=== PATIENT | female | born 1930 | race Caucasian/White ===

== ENCOUNTER 2016-12-29 22:22 | Emergency (ER) | payer MEDICARE ==
[2016-12-29 23:10] LABS: ABSOLUTE NEUTROPHIL COUNT 14.2 K/mm3 (1.8-7.7); BASO % 0.2 % (0.2-1.0); EOS % 0.1 % (0.9-2.9); HEMATOCRIT 36.6 % (37.0-47.0); HEMOGLOBIN 11.1 gm/l (12.0-16.0); IMM NEUT # 0.1 K/mm3 (0-0.2); IMM NEUT% 0.5 % (0-1); LYMPH # 0.6 (1.0-4.8); LYMPH % 4.1 % (15-45); MEAN CELL VOLUME 97.1 fl (81.0-99.0); MEAN CORPUSCULAR HEMOGLOBIN 29.4 pg (27.0-31.0); MEAN CORPUSCULAR HGB CONC 30.3 g/dl (33.0-37.0); MONO # 0.3 (0.0-0.8); MONO % 2.1 % (4-12); PLATELET COUNT 304 K/mm3 (130-400); RED CELL DISTRIBUTION WIDTH 14.9 % (11.5-14.5)
[2016-12-29 23:24] LABS: MAGNESIUM 2.1 mg/dL (1.9-2.7)
[2016-12-29 23:45] LABS: BAND 2 % (0-10); BASOPHIL 0 % (0-1); EOSINOPHIL 0 % (1-3); LYMPHOCYTE 9 % (15-45); MONOCYTE 1 % (4-12); NEUTROPHILS 88 % (43-75); PLATELET ESTIMATE NORMAL (NORMAL); TOTAL CELLS COUNTED 100
[2016-12-30 00:44] LABS: SPECIFIC GRAVITY 1.015 (1.001-1.030); URINE BILIRUBIN NEGATIVE (NEGATIVE); URINE BLOOD 2+ (NEGATIVE); URINE GLUCOSE (UA) TRACE (NEGATIVE); URINE LEUKOCYTE ESTERASE NEGATIVE (NEGATIVE); URINE NITRITE NEGATIVE (NEGATIVE); URINE PROTEIN 2+ (NEGATIVE); URINE UROBILINOGEN NORMAL (0-1 mg/dl)
[2016-12-30 00:45] LABS: URINE APPEARANCE CLEAR; URINE COLOR LIGHT YELLOW
[2016-12-30 00:53] LABS: URINE BACTERIA 0; URINE EPITHELIAL CELLS RARE /hpf
[2016-12-30] MEDS ORDERED: ASPIRIN (UNCOATED) 325 MG TABLET ONE (02:25)
[2016-12-30] MEDS ORDERED: CEFTRIAXONE 1 GRAM DUPLEX 50 ML IV ONE (02:25)
--- NOTE | 2016-12-30 08:08 | CT ---
EXAMINATION: Noncontrast cranial CT. CLINICAL INDICATION: Weakness. Inability to walk. TECHNIQUE: A noncontrast cranial CT scan was obtained. Axial images were acquired from just above the vertex through the skull base. 4 mm stacked axial, coronal, and sagittal reconstructions were reviewed. COMPARISONS: None FINDINGS: The CSF containing spaces are prominent throughout. There is diminished attenuation within the periventricular white matter tracts bilaterally. Small bilateral lacunar changes are noted. No acute intercranial hemorrhage, mass or mass effect is identified. No extra-axial fluid collections are detected. The visualized segments of the posterior fossa are unremarkable. The cerebellar pontine angle cisterns are symmetric. The osseous structures are intact. The paranasal sinuses are clear. The visualized portions of the orbits are unremarkable. The mastoid sinuses are normal and symmetric. IMPRESSION: Global diffuse atrophy with microvascular ischemic changes. No acute intracranial abnormalities are identified.
--- NOTE | 2016-12-30 08:17 | RAD ---
CHEST-AP BEDSIDE HISTORY: Weakness. COMPARISONS: 12/31/2013. FINDINGS: A single AP upright view of the chest was performed demonstrating an indwelling dual-lead pacing device in stable position. The heart size is within expected for technique. Subtle linear densities are seen within the periphery of the right hemithorax may reflect atelectasis or scarring, less conspicuous than its appearance on prior exam. No effusion or pneumothorax is visualized. The hilar and mediastinal structures are intact. IMPRESSION: 1. Peripheral interstitial prominence within the right hemithorax suggesting atelectasis or scarring, less conspicuous than its appearance on prior exam of 12/31/2013. 2. A stable appearance of the dual-lead pacing device.
== END 2016-12-30 07:03 | disposition home or self-care (01) ==
LOC: ED 22:22
DX: R53.1 Weakness (principal); I12.9 Hypertensive chronic kidney disease with stage 1 through stage 4 chronic kidney disease, or unspecified chronic kidney disease; E11.22 Type 2 diabetes mellitus with diabetic chronic kidney disease; N18.9 Chronic kidney disease, unspecified; J44.9 Chronic obstructive pulmonary disease, unspecified; Z86.718 Personal history of other venous thrombosis and embolism; Z87.891 Personal history of nicotine dependence; Z79.84 Long term (current) use of oral hypoglycemic drugs; Z79.82 Long term (current) use of aspirin
CPT/HCPCS: 83880; 85025; 80053; 83735; 84484; 81001; 71010; 70450; 99284; 51702; 96361 ×3; 96365; 99283; A9270; J0696

== ENCOUNTER 2016-12-31 10:09 | Observation (INO) | payer MEDICARE ==
[2016-12-31 10:44] LABS: URINE BILIRUBIN NEGATIVE (NEGATIVE); URINE BLOOD 2+ (NEGATIVE); URINE GLUCOSE (UA) NEGATIVE (NEGATIVE); URINE LEUKOCYTE ESTERASE NEGATIVE (NEGATIVE); URINE NITRITE NEGATIVE (NEGATIVE); URINE PROTEIN 2+ (NEGATIVE); URINE UROBILINOGEN NORMAL (0-1 mg/dl)
[2016-12-31 10:45] LABS: ABSOLUTE NEUTROPHIL COUNT 12.3 K/mm3 (1.8-7.7); BASO % 0.2 % (0.2-1.0); EOS % 0.2 % (0.9-2.9); HEMATOCRIT 36.8 % (37.0-47.0); HEMOGLOBIN 11.1 gm/l (12.0-16.0); IMM NEUT # 0.1 K/mm3 (0-0.2); IMM NEUT% 0.5 % (0-1); LYMPH # 0.8 (1.0-4.8); MEAN CELL VOLUME 98.4 fl (81.0-99.0); MEAN CORPUSCULAR HEMOGLOBIN 29.7 pg (27.0-31.0); MEAN CORPUSCULAR HGB CONC 30.2 g/dl (33.0-37.0); MEAN PLATELET VOLUME 10.2 fl (7.4-10.4); MONO # 0.5 (0.0-0.8); MONO % 3.5 % (4-12); NEUT % 89.6 % (43-75); PLATELET COUNT 330 K/mm3 (130-400); RED CELL DISTRIBUTION WIDTH 14.9 % (11.5-14.5)
[2016-12-31 10:48] LABS: URINE APPEARANCE CLEAR; URINE COLOR YELLOW
[2016-12-31 11:00] LABS: ALBUMIN 3.8 gm/dL (3.5-5.7); CALCIUM 9.9 mg/dL (8.6-10.3)
[2016-12-31 11:02] LABS: URINE BACTERIA RARE; URINE EPITHELIAL CELLS 0-1 /hpf; URINE RBC 0-1 /hpf; URINE WBC 0-1 /hpf
[2016-12-31 14:33] VITALS: BMI 33.8
[2016-12-31] MEDS ORDERED: BISACODYL 5 MG TABLET.EC PO PRN (17:39)
[2016-12-31] MEDS ORDERED: ACETAMINOPHEN 325 MG TABLET PO PRN (17:39)
[2016-12-31] MEDS ORDERED: MAGNESIUM HYDROXIDE 30 ML UDCUP PO PRN (17:39)
[2016-12-31] MEDS ORDERED: BLISTEX LIPSTICK 1 EACH TP PRN (17:39)
[2016-12-31] MEDS ORDERED: MENTHOL/CETYLPYRD 1 EACH LOZENGE PO PRN (17:39)
[2016-12-31] MEDS ORDERED: CALCIUM CARBONATE 500 MG TAB.CHEW PO PRN (17:39)
[2016-12-31] MEDS ORDERED: SODIUM CHLORIDE 0.9% 100 ML IV PRN (17:39)
[2016-12-31] MEDS ORDERED: BISACODYL 10 MG SUP PR PRN (17:39)
[2016-12-31] MEDS ORDERED: INSULIN ASPART (DOSE) 100 UNITS/1 ML SUB-Q PRN (17:45)
[2016-12-31] MEDS: FUROSEMIDE 20 MG TABLET PO SCH (18:25)
[2016-12-31] MEDS: ASPIRIN (UNCOATED) 325 MG TABLET PO SCH (18:25)
[2016-12-31] MEDS: ENOXAPARIN SODIUM 30 MG/0.3 ML SYRINGE SUB-Q SCH (18:25)
[2016-12-31] MEDS: PANTOPRAZOLE 40 MG TABLET DR PO SCH (18:27)
[2016-12-31 19:01] LABS: MAGNESIUM 1.9 mg/dL (1.9-2.7)
--- NOTE | 2016-12-31 19:52 | US ---
DUPLEX SCAN CAROTID BILATERAL Indications: Left-sided numbness. TIA. Comparisons: None Technique: The carotid arteries were interrogated with real-time bennett-scale ultrasound, color Doppler, and spectral Doppler. Carotid Duplex Criteria: Measurement of carotid stenosis is based on velocity parameters that correlate the residual internal carotid diameter with [place] Symptomatic Carotid Endarterectomy Trial (NASCET)-based stenosis levels. Doppler Right Carotid CCA prox PSV 67.8 cm/s EDV 7.4 CCA dist PSV 57.1 EDV 9.3 Bulb PSV 46.6 EDV 5.8 ICA prox PSV 51.3 EDV 7.4 ICA dist PSV 93.4 EDV 21.5 ECA PSV 99 Vertebral PSV 49.5 ICA/CCA PSV 1.6 Vertebral Flow antegrade Subclavian triphasic Left Carotid CCA prox PSV 75 cm/s EDV 8.3 CCA dist PSV 61.5 EDV 9 Bulb PSV 64.7 EDV 10.9 ICA prox PSV 61.2 EDV 7 ICA dist PSV 155 EDV 23 ECA PSV 167 Vertebral PSV 47.3 ICA/CCA PSV 2.5 Vertebral Flow antegrade Subclavian triphasic Bennett-scale: There is atherosclerotic plaque within the left carotid bifurcation. There is no suspicious spectral broadening. Impression: 1. 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 Antegrade flow within the vertebral arteries.
--- NOTE | 2016-12-31 20:07 | HP ---
[facility] [id number] DATE OF ADMISSION: December 31, 2016 CHIEF COMPLAINT: Left sided weakness. HISTORY OF PRESENT ILLNESS: The patient is an 86-year-old female who lives alone who has had a couple of episodes of weakness. She does recall having a fall about two weeks ago without significant injury but associated with some weakness and then approximately two or three days ago, she recalls having left leg weakness and numbness up to her waist that lasted about 30 minutes. She was seen in the emergency room and evaluated and discharged, but then she had a recurrence of symptoms today again with left leg numbness and weakness. She had trouble getting up but once standing could get to walking. She noted that her left arm was a little bit numb, slightly weak, but is now better. She does not recall any facial symptoms but did have speech difficulties with a hard time forming her words when she talked to 911. She describes some dysarthria rather than aphasia. She has no prior history of cerebrovascular disease known. She was given some food and has now had general resolution of her symptoms. PAST MEDICAL HISTORY: 1. 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 Baseline creatinine is around 3.5. She has not had dialysis and does not wish to have dialysis. 2. She has a history of anemia associated with chronic kidney disease and receives Aranesp on a monthly basis. 3. History of severe chronic obstructive pulmonary disease, is on 3 liters chronically. 4. History of coronary artery disease but is not aware of any history of myocardial infarction. 5. She has a possible history of congestive heart failure listed in the chart but does not have any echocardiogram that she can recall. 6. She has had diabetes for 10 to 15 years. 7. She has gastroesophageal reflux disease. 8. She takes allopurinol to prevent gout. 9. She has hypertension with goal systolic blood pressure between 130 and 160. 10. History of dyslipidemia on lovastatin. 11. Hypothyroidism. 12. At one part in the chart it says atrial fibrillation but she has not been on Coumadin or other anticoagulation, only aspirin. 13. Previous colonoscopy had shown diverticulosis. PAST SURGICAL HISTORY: Remarkable for: 1. Pacemaker for the last five years. 2. She had a colonoscopy in 2014. 3. Cataract replacements. ALLERGIES: 1. GLIPIZIDE. 2. LISINOPRIL. 3. NITROFURANTOIN. CURRENT MEDICATIONS: 1. Aspirin 325 mg daily. 2. Calcitriol 0.25 daily. 3. She had been on digoxin but she stopped one or two weeks ago. 4. Diltiazem ER 180 mg daily. 5. Lasix 40 mg daily. 6. Humalog 20 units three times daily before meals. 7. Lantus 45 units daily. 8. Levothyroxine 50 mcg orally daily. 9. Lovastatin 40 mg orally daily. 10. Omeprazole 20 mg orally daily. 11. Spiriva 18 mcg inhaled daily. 12. Sodium bicarbonate 325 mg twice daily. 13. Aranesp 40 units subcutaneously every 28 days. 14. Allopurinol 100 mg daily. SOCIAL HISTORY: She is retired from [employer] where she worked for 15 years from age 45 to age 61. She is . Lives in a house, lives alone. She has three kids. She does not drive. She has a history of smoking but quit in her 70s. No alcohol. No amish affiliation. Hobbies include reading, TV. She does not have pets. FAMILY HISTORY: Father at 76 of a stroke. Mom at 49 of cancer and may have also had Bright's disease. Kids have had some health issues in their 60s. REVIEW OF SYSTEMS: Eyes, she notes her vision is declining somewhat after having her cataracts replaced. She is hoping to see the eye doctor at some point. Ears have been okay. Left is decreased but not acutely changed. Nose is okay. Mouth has dentures. Neck is okay. Breathing is okay, unchanged. She gets dyspneic with any activity. She has had some modest decrease in activity tolerance. Normally can go to the store and shop if she paces herself. Heart, no complaints. She is paced. Stomach has been okay. Tolerated oral intake okay. No urinary complaints other than some leakage when standing. No dysuria, no hematuria. Legs, she has had a little bit of swelling noted at the ankles more recently. It seems to be worse with taking more salt. No skin complaints, no rashes. No breast complaints. Memory, she notes a little bit of decrease in recent memories but generally good [facility] memory. She is noted having some low blood sugars and states they remarked her blood sugar was quite low just the other day. Today's was 70 in the emergency room. She is a DO NOT RESUSCITATE. Her last fall was about two weeks ago and also associated with some weakness. PHYSICAL EXAMINATION: GENERAL: Alert, nontoxic female. VITAL SIGNS: Temperature is 99.0, pulse 71, blood pressure 198/66, respirations 18, oxygen saturation 99% on two liters. HEENT: Head is normocephalic, atraumatic. Eyes are unremarkable. Ears, some cerumen on the left. Right is unremarkable. Hearing is adequate. Nose is normal. Mouth has dentures. No lesions seen. NECK: No bruits, no masses. Voice is husky consistent with a history of smoking. CHEST: Slightly coarse breath sounds, slight wheeze but appropriate air movement. CARDIOVASCULAR: Paced, generally regular. ABDOMEN: Soft, nontender. Bowel sounds are normal, no rebound, no guarding, no bruits. GENITOURINARY: Exam is deferred. BREASTS: Exam is deferred. EXTREMITIES: No pitting edema noted but she reports a little bit tender on the left lower leg to light palpation. Feet are unremarkable. Upper thighs are nontender. There is no rash or erythema or other changes noted. NEUROLOGIC: Cranial nerves are intact. Speech is clear and fluent and appropriate. She has no pronator drift on testing arms at this time. Rapid alternating movement appears to be symmetric. She is oriented times three. Leg lifting is fairly symmetric. Gait not tested at this time. LABORATORY STUDIES: White count 13.8, hemoglobin 11.1, platelets 330. Sodium 137, potassium 3.9, chloride 105, CO2 22, BUN 54, creatinine 3.4, glucose 70, calcium is 9.9. Liver function tests are normal, globulin 3.7, albumin 3.8. Urinalysis, 2+ protein, specific gravity 1.010, negative leukocyte esterase, 0 to 1 white cells, 0 to 1 red cells. DIAGNOSTIC IMAGIN. Brain CT, global diffuse atrophy, microvascular ischemic changes but no cute changes. 2. Chest x-ray on December 29, 2016 shows atelectasis versus scarring but otherwise stable. ELECTROCARDIOGRAM: Paced, 67 beats per minute. Q waves noted in V2 and left axis deviation. ASSESSMENT: 1. Transient ischemic attack versus hypoglycemia mimicking transient ischemic attacks. Plan to decrease Lantus from 45 down to 30 units and will hold the scheduled prandial insulin and just do sliding scale at this time and consider restarting later. Patient does not regularly check her blood sugars at home, so no other data to compare. Plan permissive hypertensive with goal blood pressure less than 180. Continue on aspirin and we will check carotid ultrasound. 2. Stage 4 to 5 chronic kidney disease related to diabetes and hypertension. Appears to be stable. We will check magnesium and phosphorus. Continue on sodium bicarbonate and recheck in the morning. 3. Diabetes mellitus type 2 on penitentiary insulin use. Plan decrease doses as listed above. We will check capillary blood glucoses and consider reinstituting the prandial insulin if blood sugars would allow this. 4. DO NOT RESUSCITATE status discussed with her today. She states she has a DO NOT RESUSCITATE order on her fridge at home. 5. Hypertension, permissive hypertension as I mentioned before. Her normal goal blood pressure systolic between [address] Ramila Morillo. 6. Venous thrombosis prophylaxis, anticipate renally dosed enoxaparin. Cc: Magaly Santiago M.D.
[2016-12-31] MEDS: DOCUSATE SODIUM 100 MG CAPSULE PO SCH (20:49)
[2016-12-31] MEDS: SODIUM BICARBONATE 650 MG TABLET PO SCH (20:50)
[2016-12-31] MEDS ORDERED: FUROSEMIDE 20 MG TABLET PO SCH (21:00)
[2016-12-31] MEDS ORDERED: INSULIN GLARGINE (DOSE) 100 UNITS/ML UNIT SUB-Q SCH (21:00)
[2016-12-31] MEDS ORDERED: LOVASTATIN 20 MG TABLET PO SCH (21:00)
[2017-01-01] MEDS ORDERED: DILTIAZEM HCL 30 MG TABLET PO ONE (01:20)
[2017-01-01 06:41] LABS: CALCIUM 9.5 mg/dL (8.6-10.3)
[2017-01-01] MEDS: LEVOTHYROXINE SODIUM 50 MCG TABLET PO SCH (07:19)
--- NOTE | 2017-01-01 07:21 | PDOC43 ---
- Subjective Chief Complaint: Weakness, poss TIA Patient reports having a good night. Not having the feeling that her leg was asleep, and reports strength good, was able to walk to bathroom. No particular sx with low BG this am, just given some juice. No dyspnea, no nausea, no c/o, reports feeling at baseline. - Objective Vital Signs Temperature 97.5 F 01/01/17 03:00 Pulse Rate 71 01/01/17 03:00 Respiratory Rate 23 01/01/17 03:00 Blood Pressure 182/63 01/01/17 03:00 O2 Saturation by Pulse Oximetry 96 01/01/17 03:00 Oxygen Delivery Method Nasal Cannula Oxygen Flow Rate 2 Vital Signs Last 12 Hours Temp Pulse Resp BP Pulse Ox 01/01/17 03:00 97.5 F 71 23 182/63 96 01/01/17 02:15 77 24 200/69 96 01/01/17 02:00 24 01/01/17 01:07 192/70 12/31/16 23:34 97.9 F 72 23 197/71 99 12/31/16 20:00 20 12/31/16 19:36 97.6 F 77 20 205/167 98 Intake and Output 12/30/16 12/31/16 01/01/17 23:59 23:59 23:59 Intake Total 1250 Output Total 1345 Balance -95 General: Alert, Cooperative, No Acute Distress HEENT: Atraumatic Lungs: Clear to Auscultation Bilaterally Cardiovascular: Regular Rate and Rhythm (paced), No Murmur Abdomen: Soft, Normal Bowel Sounds, Non-Distended, No Tenderness Extremities: Tenderness (L leg, to even fairly light touch.), Other (sl sensitive to palpation on LLE,), No Edema Skin: Normal Color Neurological: Normal Speech Psych/Mental Status: Normal Affect Laboratory 01/01/17 05:30 01/01/17 12/31/16 12/31/16 05:30 20:47 18:40 BUN 55 H Estimated GFR 12 L POC Capillary Glucose 168 H Phosphorus 5.5 H Troponin I 0.16 H 0.19 H Laboratory Tests 12/31/16 12/31/16 12/31/16 10:25 16:12 18:40 Glucose 70 POC Capillary Glucose 114 H Phosphorus 5.5 H Magnesium 1.9 Troponin I 0.05 0.19 H 12/31/16 01/01/17 20:47 05:30 Glucose 62 L POC Capillary Glucose 168 H Phosphorus Magnesium Troponin I 0.16 H Current Medications: Current meds reviewed in EMR. Active Medications Acetaminophen (Tylenol) 650 mg PO Q6H PRN PRN Reason: Pain or Temperature > 100.5 F Allopurinol (Zyloprim) 100 mg PO DAILY [facility] Aspirin (Aspirin (Uncoated)) 325 mg PO DAILY [facility] Last Admin: 12/31/16 18:25 Dose: 325 mg Benzocaine/Menthol (Cepacol) 1 each PO PRN PRN PRN Reason: Sore Throat Bisacodyl (Dulcolax) 10 mg SC DAILY PRN PRN Reason: Constipation Bisacodyl (Dulcolax) 5 mg PO DAILY PRN PRN Reason: Constipation Calcitriol (Rocaltrol) 0.5 mcg PO DAILY [facility] Calcium Carbonate/Glycine (Tums) 500 mg PO Q4H PRN PRN Reason: Indigestion Diltiazem HCl (Cardizem Cd) 180 mg PO DAILY [facility] Docusate Sodium (Colace) 100 mg PO BID [facility] Last Admin: 12/31/16 20:49 Dose: Not Given Enoxaparin Sodium (Lovenox) 30 mg SUB-Q Q24H [facility] Last Admin: 12/31/16 18:25 Dose: 30 mg Furosemide (Lasix) 40 mg PO DAILY [facility] Last Admin: 12/31/16 18:25 Dose: 40 mg Sodium Chloride (Sodium Chloride 0.9%) 100 mls @ 25 mls/hr IV PRN PRN PRN Reason: Flush Insulin Aspart (Novolog (Dose)) 0 units SUB-Q WM/BEDTIME PRN; Protocol PRN Reason: Blood Sugar > Insulin Glargine (Lantus (Dose)) 30 units SUB-Q BEDTIME [facility] Last Admin: 12/31/16 20:51 Dose: 30 units Levothyroxine Sodium (Levothroid) 50 mcg PO QAMAC [facility] Lovastatin (Mevacor) 40 mg PO BEDTIME [facility] Magnesium Hydroxide (Milk Of Magnesia) 30 ml PO DAILY PRN PRN Reason: Constipation Pantoprazole Sodium (Protonix) 40 mg PO DAILY [facility] Last Admin: 12/31/16 18:27 Dose: 40 mg Petrolatum/Paraffin/Mineral Oil (Blistex) 1 each TP PRN PRN PRN Reason: Dry and/or chapped lips Sodium Bicarbonate (Sodium Bicarbonate Tablet) 325 mg PO BID [facility] Last Admin: 12/31/16 20:50 Dose: 325 mg Sodium Chloride (Normal Saline 10ml Flush) 10 - 50 ml IV PRN PRN PRN Reason: IV Flush Tiotropium [place] (Spiriva Handihaler) 1 cap IH DAILY [facility] - Problems: Assessment/Plan (1) TIA (transient ischemic attack) Qualifiers: Transient cerebral ischemia type: unspecified Qualifier Code: (G45.9) Transient cerebral ischemic attack, unspecified Status: AcuteAssessment/Plan : Weakness, consider TIA vs hypoglycemia (Pt still had a fairly low BG today despite marked reduction in insulin dose) On ASA, permissive HTN (up to 180 systolic) Checking Carotids (50-69% occlusion distal L ICA), awaiting echo. Pt with sl elevated troponin, checking CKMB, but pt generally does not wish for invasive care. (2) HTN (hypertension) Qualifiers: Hypertension type: renovascular hypertension Qualifier Code: (I15.0) Renovascular hypertension Status: ChronicAssessment/Plan: Plan further revision of medication due to elevated BP, adding metoprolol; pacer should prevent bradycardia. (3) Type II diabetes mellitus with stage 5 chronic kidney disease Status: ChronicAssessment/Plan: BG still low; consider further revision of Lantus. Renal dysfunction may be affecting insulin metabolism (4) Elevated troponin Status: AcuteAssessment/Plan: Checking CK-MB, but currently doubt ACS/NSTEMI. Patient expressed interest in noninvasive/medical management Continue ASA, starting metoprolol. Checking echo. VTE Prophylaxis: renal dose enoxaparin Disposition: appreciate PT/OT eval, but based on pt's report, would hope to be able to return to home.
[2017-01-01] MEDS: METOPROLOL TARTRATE 1 MG/ML 5ML VIAL IV SCH ×3 (07:41→19:19)
[2017-01-01] MEDS ORDERED: DILTIAZEM HCL CD 180 MG CAPSULE PO SCH (09:00)
[2017-01-01] MEDS: PANTOPRAZOLE 40 MG TABLET DR PO SCH (09:05)
[2017-01-01] MEDS: FUROSEMIDE 20 MG TABLET PO SCH (09:05)
[2017-01-01] MEDS: DILTIAZEM HCL CD 180 MG CAPSULE PO SCH (09:05)
[2017-01-01] MEDS: ALLOPURINOL 100 MG TABLET PO SCH (09:05)
[2017-01-01] MEDS: DOCUSATE SODIUM 100 MG CAPSULE PO SCH ×2 (09:05→20:02)
[2017-01-01] MEDS: ASPIRIN (UNCOATED) 325 MG TABLET PO SCH (09:05)
[2017-01-01] MEDS: SODIUM BICARBONATE 650 MG TABLET PO SCH ×2 (09:09→21:06)
[2017-01-01] MEDS: CALCITRIOL 0.25 MCG CAPSULE PO SCH (09:10)
[2017-01-01] MEDS: TIOTROPIUM BROMIDE 18 MCG 5 CAP/INHALER IH SCH (09:11)
[2017-01-01] MEDS ORDERED: INSULIN GLARGINE (DOSE) 100 UNITS/ML UNIT SUB-Q SCH ×2 (09:19→21:00)
[2017-01-01] MEDS ORDERED: METOPROLOL TARTRATE 1 MG/ML 5ML VIAL IV SCH (12:00)
[2017-01-01] MEDS: ENOXAPARIN SODIUM 30 MG/0.3 ML SYRINGE SUB-Q SCH (17:18)
[2017-01-02] MEDS: METOPROLOL TARTRATE 1 MG/ML 5ML VIAL IV SCH ×4 (01:41→19:50)
[2017-01-02 06:06] LABS: ABSOLUTE NEUTROPHIL COUNT 6.1 K/mm3 (1.8-7.7); BASO % 0.2 % (0.2-1.0); EOS # 0.3 (0.0-0.5); EOS % 3.7 % (0.9-2.9); HEMATOCRIT 33.4 % (37.0-47.0); HEMOGLOBIN 10.5 gm/l (12.0-16.0); IMM NEUT # 0.1 K/mm3 (0-0.2); IMM NEUT% 0.6 % (0-1); LYMPH # 1.7 (1.0-4.8); LYMPH % 19.5 % (15-45); MEAN CELL VOLUME 95.7 fl (81.0-99.0); MEAN CORPUSCULAR HEMOGLOBIN 30.1 pg (27.0-31.0); MEAN CORPUSCULAR HGB CONC 31.4 g/dl (33.0-37.0); MEAN PLATELET VOLUME 10.5 fl (7.4-10.4); MONO # 0.7 (0.0-0.8); PLATELET COUNT 267 K/mm3 (130-400); RED CELL DISTRIBUTION WIDTH 14.5 % (11.5-14.5)
[2017-01-02 06:32] LABS: ALBUMIN 3.3 gm/dL (3.5-5.7); MAGNESIUM 1.8 mg/dL (1.9-2.7)
[2017-01-02] MEDS: LEVOTHYROXINE SODIUM 50 MCG TABLET PO SCH (08:15)
[2017-01-02] MEDS: TIOTROPIUM BROMIDE 18 MCG 5 CAP/INHALER IH SCH (09:17)
[2017-01-02] MEDS: FUROSEMIDE 20 MG TABLET PO SCH (09:17)
[2017-01-02] MEDS: SODIUM BICARBONATE 650 MG TABLET PO SCH ×2 (09:18→21:06)
[2017-01-02] MEDS: DOCUSATE SODIUM 100 MG CAPSULE PO SCH ×2 (09:18→21:06)
[2017-01-02] MEDS: ASPIRIN (UNCOATED) 325 MG TABLET PO SCH (09:18)
[2017-01-02] MEDS: CALCITRIOL 0.25 MCG CAPSULE PO SCH (09:18)
[2017-01-02] MEDS: DILTIAZEM HCL CD 180 MG CAPSULE PO SCH (09:18)
[2017-01-02] MEDS: PANTOPRAZOLE 40 MG TABLET DR PO SCH (09:18)
[2017-01-02] MEDS: ALLOPURINOL 100 MG TABLET PO SCH (09:28)
[2017-01-02] MEDS ORDERED: INSULIN GLARGINE (DOSE) 100 UNITS/ML UNIT SUB-Q SCH (11:09)
--- NOTE | 2017-01-02 12:01 | PDOC43 ---
- Subjective Chief Complaint: Weakness, poss TIA Patient awake and alert, feeling better. Weakness has improved greatly, she was able to ambulate in hallway. Denies shortness of breath, tolerating diet. Subjective: Reports Pain Tolerable, Reports Tolerating Diet Well, Reports Adequate Oral Intake, Denies Urinating Without Difficulty, Denies Shortness of Breath, Denies Cough, Denies Chest Pain, Denies Abdominal Pain, Denies Nausea, Denies Vomiting - Objective Vital Signs Temperature 97.8 F 01/02/17 07:00 Pulse Rate 74 01/02/17 07:00 Respiratory Rate 18 01/02/17 08:00 Blood Pressure 191/61 01/02/17 07:00 O2 Saturation by Pulse Oximetry 97 01/02/17 07:00 Oxygen Delivery Method Nasal Cannula Oxygen Flow Rate 2 Intake and Output 12/31/16 01/01/17 01/02/17 23:59 23:59 23:59 Intake Total 1790 800 Output Total 2951 1400 Balance -1161 -600 General: Alert, Oriented x3, Cooperative, Acute Distress, Other (obese) HEENT: Atraumatic, PERRLA, EOMI, Mucous membr. moist/pink, Other (right conjunctival injection, hemorrage) Lungs: Clear to Auscultation Bilaterally, Normal Air Movement, Other (no crackle or wheeze) Cardiovascular: Regular Rate and Rhythm, Normal S1, Normal S2 Abdomen: Soft, Mild Distention, No Rigid, No Tenderness, No Rebounding Extremities: No Cyanosis, No Edema, No Tenderness Peripheral Pulses: Radial (L): 2+, Radial (R): 2+ Neurological: Normal Speech Psych/Mental Status: Normal Mood Laboratory 01/02/17 05:30 01/02/17 05:30 01/02/17 01/02/17 01/01/17 11:23 05:30 20:43 RBC 3.49 L MCHC 31.4 L BUN 56 H Estimated GFR 12 L POC Capillary Glucose 124 H 157 H Phosphorus 5.7 H Magnesium 1.8 L Troponin I 0.10 H Albumin 3.3 L Current Medications: Current meds reviewed in EMR. - Problems: Assessment/Plan (1) TIA (transient ischemic attack) Qualifiers: Transient cerebral ischemia type: unspecified Qualifier Code: (G45.9) Transient cerebral ischemic attack, unspecified Status: AcuteAssessment/Plan : Weakness, consider TIA vs hypoglycemia (Pt still had a fairly low BG today despite marked reduction in insulin dose) On ASA, permissive HTN (up to 180 systolic) Checking Carotids (50-69% occlusion distal L ICA), awaiting echo. Pt with sl elevated troponin, checking CKMB, but pt generally does not wish for invasive care. 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 Patient expressed interest in noninvasive/medical management Continue ASA, starting metoprolol. ECHO with EF of 60-65%, no hypokinesis, grade diastolic dysfunction (3) HTN (hypertension) Qualifiers: Hypertension type: renovascular hypertension Qualifier Code: (I15.0) Renovascular hypertension Status: ChronicAssessment/Plan: Plan further revision of medication due to elevated BP, adding metoprolol; pacer should prevent bradycardia. Stable (4) Type II diabetes mellitus with stage 5 chronic kidney disease Status: ChronicAssessment/Plan: BG still low; consider further revision of Lantus. Renal dysfunction may be affecting insulin metabolism BS this 70, will further decrease insulin dose. Permissive hyperglycemia for patient due to age and co-morbidities. Safety of hypoglycemic incidents is high concern (5) Weakness generalized Status: AcuteAssessment/Plan: patient felt to be TIA's but 2nd to hypoglycemia as resolving with time and working with therapy without difficulty (6) Diastolic CHF Qualifiers: Congestive heart failure chronicity: chronic Qualifier Code: (I50.32) Chronic diastolic (congestive) heart failure Status: ChronicAssessment/Plan : EF 60-65%, grade I diastolic VTE Prophylaxis: renal dose enoxaparin Disposition: appreciate PT/OT eval, but based on pt's report, would hope to be able to return to home.
[2017-01-03] MEDS: METOPROLOL TARTRATE 1 MG/ML 5ML VIAL IV SCH ×2 (01:32→08:16)
[2017-01-03 05:49] LABS: HEMOGLOBIN 10.3 gm/l (12.0-16.0); MEAN CELL VOLUME 95.1 fl (81.0-99.0); MEAN CORPUSCULAR HEMOGLOBIN 29.7 pg (27.0-31.0); MEAN CORPUSCULAR HGB CONC 31.2 g/dl (33.0-37.0); RED CELL DISTRIBUTION WIDTH 14.3 % (11.5-14.5)
[2017-01-03] MEDS: LEVOTHYROXINE SODIUM 50 MCG TABLET PO SCH (08:13)
--- NOTE | 2017-01-03 08:27 | PDOC5 ---
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 She has predominately left leg weakness and numbness that lasted for about 0 minutes. She was initially evaluated and discharged home from the emergency department but returned with similar symptoms and was admitted to the hospital for ongoing evaluation. With PO intake, her symptoms resolved. It was found that she dose not monitor her blood sugar as regularly as recommended but continues to inject her insulin dose. She was found to be hypoglycemic and her insulin was decreased daily. With improvement in her morning fasting blood sugars, she no longer experience any further weakness and participated with therapy. Her chronic medical conditions were managed except for permissive hypertension due to the possibility of TIA. Her insulin dosing has been adjusted to 10 units from 45 units of lantus nightly and holding her humalog dosing until follow-up with primary care provider. With her chronic kidney disease, she is not clearing her insulin resulting in hypoglycemia and a feeling of weakness. - Exam Vital Signs Temperature 97.9 F 01/03/17 01:45 Pulse Rate 60 01/03/17 01:45 Respiratory Rate 22 01/03/17 02:00 Blood Pressure 188/73 01/03/17 01:45 O2 Saturation by Pulse Oximetry 94 01/03/17 01:45 Oxygen Delivery Method Nasal Cannula Oxygen Flow Rate 2 General: Alert, Oriented x3, Cooperative, Other (morbidly obese), No Acute Distress HEENT: Atraumatic, PERRLA, EOMI, Mucous membr. moist/pink, Other (right conjunctival hemorrhage) Lungs: Clear to Auscultation Bilaterally, Normal Air Movement, Other (no crackle or wheeze) Cardiovascular: Regular Rate and Rhythm, Normal S1, Normal S2 Abdomen: Soft, Mild Distention, No Rigid, No Tenderness, No Rebounding Extremities: No Cyanosis, No Tenderness Peripheral Pulses: Radial (L): 1+, Radial (R): 1+, Posterior Tibialis (L): 1+, Posterior Tibialis (R): 1+ Neurological: Normal Speech Psych/Mental Status: Normal Mood - Results Laboratory 01/03/17 05:30 01/03/17 05:30 01/03/17 01/02/17 01/02/17 05:30 20:58 17:25 RBC 3.47 L MCHC 31.2 L BUN 56 H Estimated GFR 12 L POC Capillary Glucose 146 H 136 H 01/02/17 11:23 RBC MCHC BUN Estimated GFR POC Capillary Glucose 124 H Laboratory Tests 12/31/16 12/31/16 01/01/17 10:25 18:40 05:30 Troponin I 0.05 0.19 H 0.16 H 01/02/17 05:30 Troponin I 0.10 H Laboratory Tests 01/01/17 05:30 B-Natriuretic Peptide 545 H Imaging Results: US Duplex Carotid: 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 Antegrade flow within vertebral arteries. Echocardiogram: EF 60-65%. Grade I diastolic dysfunction Head CT 12/31/2016: global diffuse atrophy iwth microvascular ishcmie changes. No acute intracranial abnormalities CXR 12/31/2016: Peripheral interstitial prominence of right hemithorax suggesting atelectasis or scarring. Stable appearance of dual lead pacing device - Problems:Assessment/Plan (1) TIA (transient ischemic attack) Qualifiers: Transient cerebral ischemia type: unspecified Qualifier Code: (G45.9) Transient cerebral ischemic attack, unspecified Status: AcuteAssessment/Plan : Weakness, consider TIA vs hypoglycemia (Pt still had a fairly low BG today despite marked reduction in insulin dose) On ASA, permissive HTN (up to 180 systolic) Checking Carotids (50-69% occlusion distal L ICA), awaiting echo. Pt with sl elevated troponin, checking CKMB, but pt generally does not wish for invasive care. 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 Patient expressed interest in noninvasive/medical management Continue ASA, starting metoprolol. ECHO with EF of 60-65%, no hypokinesis, grade diastolic dysfunction (3) HTN (hypertension) Qualifiers: Hypertension type: renovascular hypertension Qualifier Code: (I15.0) Renovascular hypertension Status: ChronicAssessment/Plan: Plan further revision of medication due to elevated BP, adding metoprolol; pacer should prevent bradycardia. Stable (4) Type II diabetes mellitus with stage 5 chronic kidney disease Status: ChronicAssessment/Plan: BG still low; consider further revision of Lantus. Renal dysfunction may be affecting insulin metabolism BS this 70, will further decrease insulin dose. Permissive hyperglycemia for patient due to age and co-morbidities. Safety of hypoglycemic incidents is high concern BS stable this morning. Will DC with 10 units of daily lantus and holding lispro (5) Weakness generalized Status: AcuteAssessment/Plan: patient felt to be TIA's but 2nd to hypoglycemia as resolving with time and working with therapy without difficulty (6) Diastolic CHF Qualifiers: Congestive heart failure chronicity: chronic Qualifier Code: (I50.32) Chronic diastolic (congestive) heart failure Status: ChronicAssessment/Plan : EF 60-65%, grade I diastolic - Disposition: Disposition: appreciate PT/OT eval, but based on pt's report, would hope to be able to return to home. - Discharge Plan Additional Instructions: Decrease lantus to 10 units from 45 units nightly. Do not provide humalog meal coverage insulin blood sugar is checked and greater than 200. Prescriptions: Insulin Glargine (Dose) [LANTUS INSULIN (DOSE) (SHF)] 10 units SUB-Q BEDTIME #1 units Follow-Up: Johanna Kate FNP [Primary Care Provider] - 01/07/17 11:00 am Condition: Stable Disposition: Home
[2017-01-03 08:28] VITALS: BP 180/70
[2017-01-03] MEDS: TIOTROPIUM BROMIDE 18 MCG 5 CAP/INHALER IH SCH (09:38)
[2017-01-03] MEDS: CALCITRIOL 0.25 MCG CAPSULE PO SCH (09:40)
[2017-01-03] MEDS: SODIUM BICARBONATE 650 MG TABLET PO SCH (09:41)
[2017-01-03] MEDS: PANTOPRAZOLE 40 MG TABLET DR PO SCH (09:43)
[2017-01-03] MEDS: DOCUSATE SODIUM 100 MG CAPSULE PO SCH (09:44)
[2017-01-03] MEDS: ASPIRIN (UNCOATED) 325 MG TABLET PO SCH (09:45)
[2017-01-03] MEDS: DILTIAZEM HCL CD 180 MG CAPSULE PO SCH (09:45)
[2017-01-03] MEDS: FUROSEMIDE 20 MG TABLET PO SCH (09:46)
[2017-01-03] MEDS: ALLOPURINOL 100 MG TABLET PO SCH (09:47)
== END 2017-01-03 11:10 | disposition home or self-care (01) ==
LOC: ED 10:09 → UNDOADMOB 13:33 → ICU 13:33 → INTOOBSV 13:33 → MS 18:30 → ICU 18:30 → MS 01-02 18:44
PROVIDERS: ADMIT Family Medicine; ATTEND Family Medicine
DX: G45.9 Transient cerebral ischemic attack, unspecified (principal); E11.22 Type 2 diabetes mellitus with diabetic chronic kidney disease; E11.65 Type 2 diabetes mellitus with hyperglycemia; I13.0 Hypertensive heart and chronic kidney disease with heart failure and stage 1 through stage 4 chronic kidney disease, or unspecified chronic kidney disease; N18.5 Chronic kidney disease, stage 5; I50.32 Chronic diastolic (congestive) heart failure; D63.1 Anemia in chronic kidney disease; I25.10 Atherosclerotic heart disease of native coronary artery without angina pectoris; K21.9 Gastro-esophageal reflux disease without esophagitis; M10.9 Gout, unspecified; E78.5 Hyperlipidemia, unspecified; E03.9 Hypothyroidism, unspecified; Z79.4 Long term (current) use of insulin
CPT/HCPCS: 83880; 85027; 85025 ×2; 82550; 82553; 80048 ×2; 80053 ×2; 83735 ×2; 84100 ×2; 84484 ×5; 81001; 36415 ×4; 97530; 97165; 99284; 93306; 93005; 93880; 99285; A9270 ×32; J1650 ×2; J1815 ×3